=== PATIENT | female | born 1975 | race Caucasian/White ===

== ENCOUNTER → 2023-10-23 08:59 | Outpatient (REF) | payer BC, SELFPAY | LOC: HWLAB 08:59 | PROVIDERS: ATTENDING PHYSICIAN Nurse Practitioner | DX: M79.672 Pain in left foot (principal) | CPT/HCPCS: 73630 ==

== ENCOUNTER → 2024-03-31 06:58 | Outpatient (REF) | payer BC, SELFPAY | LOC: HWWDC 06:58 | PROVIDERS: ATTENDING PHYSICIAN Nurse Practitioner | DX: Z12.31 Encounter for screening mammogram for malignant neoplasm of breast (principal) | CPT/HCPCS: 77063; 77067 ==

== ENCOUNTER → 2024-04-09 08:39 | Outpatient (REF) | payer BC, SELFPAY | LOC: WDC 08:39 | PROVIDERS: ATTENDING PHYSICIAN Nurse Practitioner | DX: R92.8 Other abnormal and inconclusive findings on diagnostic imaging of breast (principal) | CPT/HCPCS: 76642; 77066 ==

== ENCOUNTER → 2024-04-14 07:17 | Outpatient (REF) | payer BC, SELFPAY ==
--- NOTE | 2024-04-14 09:43 | OID.BR.INTR ---
RACHELED Breast Navigator - Initial
- -
Date of Contact: 04/14/24
Met with patient. Patient given written information on navigator services available at [facility]. Will follow up as needed per protocol.
== END ==
LOC: WDC 07:17
PROVIDERS: ATTENDING PHYSICIAN Nurse Practitioner
DX: R92.1 Mammographic calcification found on diagnostic imaging of breast (principal)
CPT/HCPCS: 88305; 19081; 76098; 88341; 88342; 88360; A4648

== ENCOUNTER 2024-05-05 11:16 | Outpatient (REF) | payer BC, SELFPAY ==
--- NOTE | 2024-05-06 12:52 | W.SUR.PREOP ---
Pre-Operative Surgical Note
-
I have examined this patient prior to the performance of the scheduled procedure.
The patient's condition is unchanged from the time of the current History and
Physical and the patient is able to undergo the scheduled procedure.
== END 2024-05-05 14:00 | disposition home or self-care (01) ==
LOC: WDC 11:16
PROVIDERS: ATTENDING PHYSICIAN Surgery; FAMILY PHYSICIAN Nurse Practitioner
DX: C50.911 Malignant neoplasm of unspecified site of right female breast (principal); C50.912 Malignant neoplasm of unspecified site of left female breast
CPT/HCPCS: 38792; A9541

== ENCOUNTER 2024-05-06 11:12 | Day surgery (SDC) | payer BC, SELFPAY ==
[2024-05-02 09:08] LABS: Hematocrit 38.1 % (37.0-47.0); Hemoglobin 12.6 g/dL (12.0-16.0); Mean Corp Hgb Conc. 33.1 g/dL (33.0-37.0); Mean Corpuscular Hgb 31.3 pg (27.0-31.0); Mean Corpuscular Volume 94.8 fL (81.0-99.0); Mean Platelet Volume 10.4 fL (7.4-10.4); Platelet Count 300 10^3/uL (130-400); Red Blood Cell Count 4.02 10^6/uL (4.20-5.40); Red Cell Dist. Width 13.2 % (11.5-14.5); White Blood Cell Count 5.1 10^3/uL (4.8-10.8)
[2024-05-02 09:28] LABS: ALT (SGPT) 19 U/L (0-35); AST (SGOT) 24 U/L (14-36); Albumin 4.2 g/dl (3.5-5.0); Alkaline Phosphatase 49 U/L (38-126); Blood Urea Nitrogen 10 mg/dl (7-17); Calcium 9.2 mg/dl (8.4-10.2); Carbon Dioxide 27 mmol/L (22-30); Chloride 102 mmol/L (98-107); Glucose 89 mg/dl (70-99); Potassium 4.2 mmol/L (3.5-5.1); Sodium 140 mmol/L (135-145); Total Bilirubin 0.4 mg/dl (0.2-1.3); eGFR > 60.00
[2024-05-02 09:32] LABS: Prealbumin (Transthyretin) 24.3 mg/dl (17.6-36.0)
[2024-05-02 11:01] VITALS: BMI 37.0
[2024-05-06] VITALS (10 sets, daily range): BP systolic 2–137; BP diastolic 63–79; BMI 37.0; BMI 38.8
[2024-05-06] MEDS: TYLENOL 1000 MG PO ×2 (11:26→23:31)
[2024-05-06] MEDS: LOVENOX 40 MG SC (13:59)
--- NOTE | 2024-05-06 18:10 | W.IMMPOSTOP ---
Surgical Immed Post Op Note
-
Primary Surgeon: VALERIE Martinez MD
Assisting Surgeon:
Pre-op Diagnosis: Breast Cancer
Post-op Diagnosis: Same
Procedure Performed: Bilateral immediate bellman captain reconstruction after skin sparing mastectomies
Anesthesia Type: GA
Specimen / Cultures: per Dr. Taylor
Estimated Blood Loss: 10cc
Complications: None
Operative Findings: as expected 13cm filled to 150cc NS
--- NOTE | 2024-05-06 18:11 | OR.RPT ---
Operative Report
Operative Report
Date of Surgery: 05/06/24
Surgeon: VALERIE Martinez MD
Preoperative diagnosis: Breast cancer
Postoperative diagnosis: Same
Procedure: Bilateral immediate breast reconstruction with prepectoral tissue expanders
Complications: None
Anesthesia: General
EBL: 10cc
Legal Office Administrator size: 13 cm
Indications for procedure: Patient was referred to me by Dr. Taylor with a recent diagnosis of breast cancer. She was planned to undergo bilateral mastectomy. We discussed her options for breast reconstruction at length including implant based
and autologous options. The patient opted for immediate reconstruction with tissue expanders. She understands that the final reconstruction will be staged. We also discussed the possible use of ADM and spy angiography. Risks include
reconstructive failure, capsular contracture, infection, delayed wound healing, mastectomy skin flap necrosis, hematoma, seroma and need for repeat procedure. Patient understood these risks and desired to proceed. Consents were signed accordingly.
Procedure in detail: Patient was identified the preoperative area and the surgical site was confirmed to be the bilateral breast. All questions were answered and consents were confirmed. Patient was then sat upright and normal anatomical landmarks
were marked including midline and inframammary fold. Patient was then taken back to the operating room placed supine on the table. She was prepped and draped in the usual sterile fashion using ChloraPrep solution. A Chaudhary catheter was placed. A
timeout for patient safety was performed was confirmed that bilateral SCDs were in place and preoperative antibiotics administered. The procedure began with Dr. Taylor first performing the mastectomy. Her op report will be dictated separately.
When I entered the procedure, the first sided mastectomy had been completed. As such I inspected the wound bed of the chest wall and ensured meticulous hemostasis. The base width was measured and appropriate tissue workers compensation manager was selected. The
workers compensation manager was then sutured to the chest wall with a series of 2-0 silk sutures. Pectoralis and intercostal blocks were performed with Marcaine. 2 drains were then placed in the preaxial area line with a long subcutaneous tunnel and sutured in place
with 2-0 Prolene sutures. The wound was irrigated with double antibiotic solution and dilute Betadine. The mastectomy incisions were then closed with a series of 2-0 Vicryl's in the deep subcutaneous tissues followed by Insorb and 3-0 Monocryl's
in the deep dermis and superficial skin.
Attention was then placed on the contralateral side after completion of the mastectomy. The exact same procedure was performed. An workers compensation manager of the same size was opened and soaked in Betadine. The construct was then sutured to the chest wall using
2-0 silks. Pectoralis and intercostal blocks were performed. Meticulous hemostasis was ensured and the wound was irrigated with combination of double antibiotic solution consisting of Ancef and gentamicin as well as dilute Betadine. The wound was
closed in layers.
The wounds were dressed accordingly and a supportive bra was placed. The patient was extubated taken to the PACU for further care. All counts were correct at the end the case was performed out complication.
[2024-05-06] MEDS: DILAUDID 0.5 MG IV (18:37)
[2024-05-06] MEDS: DILAUDID 0.25 MG IV (19:03)
--- NOTE | 2024-05-06 19:41 | OR.RPT ---
Operative Report
Operative Report
Indications for surgery: The patient is a 49-year-old female who presented with bilateral breast carcinoma detected by imaging. She desired bilateral mastectomies and will undergo bilateral sentinel lymph node mapping and biopsy and immediate
reconstruction. On the day prior to the procedure the patient presented to the [facility] imaging center and had technetium radiotracer injected into both breasts. On the day of surgery she verified site and procedures. She was taken to the operating
room. DVT and antibiotic prophylaxis were administered. In the supine position general anesthesia was induced with a laryngeal airway mask. Chaudhary catheter was inserted using aseptic technique. Attention was first turned to the right breast where
a previously marked incision incorporating resection of the nipple areolar complex was made sharply with the blade. Skin flaps were elevated using the PlasmaBlade and Invuity retractor system. The skin was elevated off the entirety of the breast
tissue and the breast was taken off the chest wall in a superior to inferior dimension. Time out of body was noted and the specimen was oriented for the pathologist and sent for permanent analysis. The axilla was entered by incising clavipectoral
fascia with the Bovie and the Neoprobe gamma probe was used to identify sentinel nodes which were removed by clamping and tying with 3-0 silk. Frozen section on all of the notes was negative for any evidence of metastatic disease. Hemostasis was
verified and a moist pack was placed in the resection cavity. Plastic surgery entered to begin the reconstructive portion of the procedure. In the same fashion the left side was approached and the sentinel nodes were harvested as well. At this
juncture all sponge needle and instrument counts were correct.
([id number])
[place] Node Bx Breast Cancer
[place] Node Bx Breast Cancer
Operation performed with curative intent: Yes
Tracer(s) to ID [place] Nodes in Non-Neoadjuvant setting: Radioactive Tracer
Tracer(s) to ID [place] Nodes in the Neoadjuvant Setting: N/A
All nodes at end of dye-filled Lymphatic Channel removed: Yes
All Significantly Radioactive Nodes were removed: Yes
All Palpably Suspicious Nodes were Removed: Yes
Bx Proven Pos Nodes Marked Prior to Chemo ID'd & Removed: N/A
--- NOTE | 2024-05-06 19:45 | PTCARENOTE ---
Pt arrived in bed to 2S at 1945 from PACU. Pt AAOX3. VSS. simon draining yellow urine. 4 AYANNA drains intact and putting out sanguineous drainage. surgical bra in place. dressing on b/l breasts intact. R sided dressing has small sanguineous drainage
which was noted in PACU. L side C/D/I. Pt complains of 5/10 pain (see MAR). head to toe assessment complete. Pt oriented to room and call yeboah. Resting in bed with at bedside.
[2024-05-06] MEDS: NEURONTIN 100 MG PO (21:07)
[2024-05-06] MEDS: ANCEF 5 IV (21:07)
[2024-05-06] MEDS: MOTRIN 200 MG PO (21:24)
[2024-05-07 03:56] VITALS: BP 102/60
[2024-05-07] MEDS: ANCEF 5 IV (05:01)
[2024-05-07] MEDS: TYLENOL 1000 MG PO ×2 (05:01→11:05)
[2024-05-07 05:39] LABS: Hematocrit 35.6 % (37.0-47.0)
[2024-05-07 06:05] LABS: Blood Urea Nitrogen 9 mg/dl (7-17); Calcium 8.3 mg/dl (8.4-10.2); Carbon Dioxide 24 mmol/L (22-30); Chloride 102 mmol/L (98-107); Estimated Creatinine Clearance > 125 ml/min; Glucose 117 mg/dl (70-99); Potassium 4.6 mmol/L (3.5-5.1); Sodium 137 mmol/L (135-145); eGFR > 60.00
[2024-05-07 07:30] VITALS: BP 100/56
[2024-05-07] MEDS: NEURONTIN 100 MG PO (07:51)
--- NOTE | 2024-05-07 07:55 | W.PN.PLAS ---
Progress Note
Subjective Data
Doing well today
Pain well controlled
Denies SOB
Subjective: Chaudhary Removed and Patient Voided
Objective Data
Vital Signs
Temp Pulse Resp BP Pulse Ox
98.2 F 66 18 102/60 92
05/07/24 03:56 05/07/24 03:56 05/07/24 03:56 05/07/24 03:56 05/07/24 03:56
Intake and Output
05/06/24 05/07/24 05/08/24
06:59 06:59 06:59
Intake Total 1919
Output Total 762 / 762
Balance 1158 / 1158
Intake:
Oral fluids 1919
Output:
Drain Output (Total) 562 / 562
Left Breast A 300 / 300
Left Breast B 107 / 107
Right Breast C 125 / 125
Right Breast D 30 / 30
Urine, Chaudhary 150 / 150
Urine, Voided 50 / 50
Other:
Number of approximated MODERATE 1
amounts of urine
Pex:
NAD
No increased WOB
Bilateral breasts with tissue expanders in place
Drains serosang with appropriate output
No undrained fluid collections
Lab Results
05/07/24 04:33
05/07/24 04:33
Assessment / Plan
s/p bilateral mastectomies and immediate front office attendant reconstruction
Discharge to home with VN and close surgical follow up
--- NOTE | 2024-05-07 07:58 | W.DCSUMMARY ---
Discharge Summary
Discharge Data
Date of Admission: 05/06/24
Date of Discharge: 05/07/24
-
Pending Results: No
Hospital Course
Admitted for pain control and flap monitoring following bilateral mastectomy and java development manager reconstruction.
She followed a routine postoperative course. On POD1 she was ambulating, tolerating regular diet, and pain was well controlled on oral medications.
Discharged to home with VN and close surgical follow up.
Discharge Plan
-
Patient Disposition: Home (Routine Discharge)
Discharge Diagnosis/Procedures: s/p b/l mastectomy and java development manager recon
Condition: Good
Diet: No restrictions
Activity: No strenuous activity
Additional Activity: No heavy lifting >10lbs
Driving Restrictions: Not until seen by your Dr
Bathing Restrictions: OK to Shower
Other Services: VN
Wound Care: Remove dressings if wet, strip and record drain output twice daily
Referrals:
Clay Brandon CRNP [Family Provider] -
Prescriptions:
New
tramadol 50 mg Tablet
50 mg PO Q6HPRN PRN (Reason: SEVERE PAIN) 7 Days Qty: 20 0RF
acetaminophen [Tylenol Extra Strength] 500 mg Tablet
1,000 mg PO Q6 30 Days Qty: 240 0RF
gabapentin 100 mg Capsule
100 mg PO TID 30 Days Qty: 90 2RF
diazepam 5 mg Tablet
5 mg PO TIDPRN PRN (Reason: Muscle Spasms) 14 Days Qty: 42 0RF
cefadroxil 500 mg capsule
500 mg PO BID Qty: 42 0RF
Continued
multivitamin Tablet
1 tab PO DAILY
Zepbound 12.5 mg/0.5 mL Pen Injector
12.5 mg SC QWEEK
ibuprofen 600 MG tablet
600 mg PO Q6H PRN (Reason: pain)
Discharge Orders:
Discharge Patient (As Directed); Ordered 05/07/24
Ordered By: Elijah Martinez
Discharge Date and Time
Print Language: WOLOF
--- NOTE | 2024-05-07 10:40 | CM ---
Met with at bedside
Pt reports she lives with her and son in a 2 story home; 1 step to enter, 12 steps to 2nd fl
Independent at baseline, currently not working, drives
DME - none
SNF/HH - no past hx
Has ride at discharge
PCP - Clay Brandon
Pharm - [facility]
CM consult - VN/Drain care
Discussed with pt - Has no preference - [facility] L[facility] for [facility] care needs
Plan - home with VN
--- NOTE | 2024-05-07 11:12 | VNURNOTE ---
Home Health Liaison met with patient and spouse at bedside to discuss [facility] nurse/therapy, visits, schedule and homebound status. Patient is agreeable and understands that visits at home will be 2-3 x per week to assess and teach drain and medical
management. [facility] brochure provided with contact information. Patient is aware that [facility] will contact them for start of care in 1-2 days after discharge from .
[facility] referral completed in Care Port.
[2024-05-07 12:00] VITALS: BP 131/67
== END 2024-05-07 12:49 | disposition home or self-care (01) ==
LOC: SDS 11:12
PROVIDERS: ATTENDING PHYSICIAN Surgery; REFERRING PHYSICIAN Surgery Plastic and Reconstructive Surgery
DX: C50.912 Malignant neoplasm of unspecified site of left female breast (principal); C50.911 Malignant neoplasm of unspecified site of right female breast
CPT/HCPCS: 19357; 19303; 38525; 15860; 88307; 88332; 36415; 80048; 80053; 82306; 84134; 85014; 85018; 85027; 88331; 88342; 93005; C1789; L8000

== ENCOUNTER → 2024-07-31 07:03 | Outpatient (REF) | payer BC, SELFPAY | LOC: RAD 07:03 | PROVIDERS: ATTENDING PHYSICIAN Surgery Plastic and Reconstructive Surgery; FAMILY PHYSICIAN Family Medicine | DX: Z90.13 Acquired absence of bilateral breasts and nipples (principal) | CPT/HCPCS: 74174; Q9967 ==

== ENCOUNTER 2024-08-06 06:27 | Inpatient (IN) | payer BC, SELFPAY ==
[2024-08-06] VITALS (14 sets, daily range): BP systolic 97–124; BP diastolic 60–78; BMI 36.3
[2024-08-06] MEDS: LOVENOX 40 MG SC (07:00)
[2024-08-06] MEDS: NORMOSOL-R/PLASMALYTE-A 1000 IV (07:09)
--- NOTE | 2024-08-06 16:14 | OR.RPT ---
Operative Report
Operative Report
Surgeon: Jake Kye MD
Long Term Care Social Worker/Cosurgeon: Andrew Martinez MD
Second Project Intern: Bisi Taylor MD
Pre-op diagnosis:
1.� Personal history of breast cancer
2. Status post bilateral mastectomies
Postop diagnosis: Same
Procedure:
1. Bilateral breast reconstruction with NAT flaps
2.� Right local tissue rearrangement for recreation of mastectomy defect, measuring 15x15 cm on the right side and
3. Left local tissue rearrangement for modification of the left mastectomy skin flaps measuring 6 x 6 cm
4.� Bilateral internal mammary lymph node biopsy
5. Application of disposable negative pressure incisional wound VAC
Anesthesia: General
EBL: 150 cc
Specimens:
1.� Right internal mammary lymph node
2.� Left internal mammary lymph node
3. Right breast capsule
Drains: 4 15 Cambodian Yovanny drains
Complications: none
Indications:
This is a 49-year-old female with a past medical history significant for breast cancer with prior implant based reconstruction that was complicated by infection and business analytics specialist removal on the right.�She has since been flat on the right with an business analytics specialist
on the left. She was interested in moving forward with autologous reconstruction. Given the anticipated bilateral NAT flap breast reconstruction, I was asked to be involved in her care given the complexity of the case and the need for a second
surgeon to do this as safely and efficiently as possible.
Regarding bilateral free flap breast reconstruction,� she understood the nature of the surgery and all of the risk benefits alternatives were discussed at length.� Specific risks included flap failure or thrombosis, hematoma, seroma, poor wound
healing and compromise to the abdominal wall.� All questions were answered and consents were signed.
Operative findings:
The patient was identified in the preoperative area and consents were confirmed. The bilateral breasts were marked out as was the elliptical infraumbilical donor site. All questions were answered. She was brought to the operating room and placed
supine on the operative table.� General anesthesia was induced with an endotracheal tube. The arms were tucked bilaterally and a Chaudhary catheter was placed.� Preoperative Lovenox and antibiotics were administered, and SCDs were placed.� The patient's
bilateral breasts and abdomen were prepped and draped in normal standard fashion using chlorhexidine prep.� A timeout for patient safety was performed.
To start the procedure, Dr. Martinez and I were in the abdomen to initiate the dissection of the abdominal flaps. I dissected the left abdominal flap for right breast reconstruction and Dr. Martinez worked on the right abdomen for left breast
reconstruction. Dr. Martinez assisted me with my portions of the case, and I assisted him with his portions of the case. Please see Dr. Taylor and Dr. Martinez's separately dictated operative notes. Once Dr. Martinez started his intramuscular dissection
of his flap, i went up to the chest to prepare the vessels for microvascular transfer and at this time we began functioning as 2 separate teams.
In the abdomen, bilateral NAT flaps were dissected out. This began with incising the proposed markings superiorly and dissection with a slight bevel upwards to the level of the fascia. Undermining of the supraumbilical flap continue in the midline
above the umbilicus towards the xiphoid. The patient was then flexed at the waist and the lower incision was confirmed to be tenable without undue tension. The patient was returned supine and the lower marking was incised with a 10 blade. The flaps
were then raised laterally to medially be sure to maintain the perforating vessels above the level of the fascia.� On the right side a 4 lease purchase driver NAT flap was dissected out.� Similarly on the left side a 3 lease purchase driver NAT flap had been dissected
out.�This involved a tedious intramuscular dissection to minimize the amount of muscle harvested with the flap. The pedicles were dissected down to level of the iliac vessels.
In the chest, local tissue rearrangements were performed to recreate the mastectomy defect on the right. This measured 15 x 15 cm. There were prior linn pattern scars that needed to be utilized and back cuts were later made to revise the mastectomy
flaps and adjust to the overlying skin. The cartilaginous portion of the 3rd rib was then resected bilaterally and the underlying internal mammary vessels were then meticulously and carefully dissected.�Internal mammary lymph nodes were encountered
bilaterally and this was excised and sent off for pathologic evaluation. Once the vessels were fully dissected circumferentially these were allowed to dilate up while attention was turned to the contralateral breast.� A pectoralis block was then
performed with marcaine and a 15 Cambodian Yovanny drain was placed through a stab incision the lateral IMF.� This was secured using a 2-0 Prolene suture.
The right hemiabdominal flap was then transferred up to the left chest first. The microvascular anastomosis was then performed.� This was done using a 3.0mm sew out operator for the venous anastomosis.� The arterial anastomosis was performed with a handsewn
technique using 8-0 nylon suture.� Upon removal of the microvascular clamps there was excellent perfusion of the flap.� The flap was then temporarily inset with adama and attention was turned to the contralateral side.
The left hemiabdominal flap was then transferred up to the right chest.� The microvascular anastomosis was similarly performed.� On this side a 4.0mm sew out operator was again utilized for the venous anastomosis.� The arterial anastomosis was performed in
the same fashion as the contralateral side.� Again there was excellent perfusion noted upon removal of the vascular clamps.
While the microvascular anastomoses were being performed, Dr. Taylor was performing the abdominal wall reconstruction.� Again please see her separately dictated operative report for details. Briefly, this involved reapproximation of the muscles
that was divided.� A small piece of Phasix mesh was inset as a underlay with primary fascial closure.� The fascia was closed with interrupted PDS sutures.�
A TAP block was performed bilaterally for postoperative analgesia.� Two 15 Cambodian Yovanny drains were placed in the abdomen.� These were similarly secured using 2-0 Prolene sutures.� The abdominal wall was then closed in a layered fashion.� 2-0 Vicryl
suture was utilized in the Carleen's fascia.� The Insorb dermal stapler was then utilized for reapproximation of the deep dermis.� The superficial skin was then closed using 4-0 Monocryl suture.� The umbilicus was transposed.� This was inset using a
combination of 3-0 Monocryl in the deep dermis and 4-0 vicrl rapide suture superficially. A KITA incisional wound VAC was applied superficially to maximize wound healing.
The NAT flaps were then inset. On the left side, a local tissue rearrangement was performed to modify the mastectomy skin paddles and use the abdominal skin for an areolar reconstruction. This measured 6 x6cm. The skin was then closed in a layered
fashion using 3-0 and 4-0 Monocryl suture.� The NAT flaps were de-epithelialized in all areas that would not be exposed prior to closure.
Doppler signals were identified on both skin islands and there was good punctate bleeding at time of deepithelialization. Signals were marked with 5-0 prolenes.
The wounds were then all dressed and the patient was extubated uneventfully.� All counts were correct at the the completion of the case.� The patient tolerated the procedure very well.� She had an excellent cosmetic outcome.� The patient was then
transferred to the ICU for postoperative�monitoring.
I was the primary surgeon for the right NAT flap breast reconstruction and Dr. Giulia Martinez was the primary surgeon for the left side. I assisted him in all aspects of his surgery and he assisted me throughout my procedure and we functioned as
cosurgeons throughout the case so that we could operate in 2 separate surgical jain at all times to maximize safety and efficiency.
Dr. Bisi Taylor was our second customer service assistant for this case.� Her assistance was critical and medically necessary to allow us to perform this in a safe and timely manner for this patient.� She assisted with retraction, execution, and closure of this
case. She also was responsible for the abdominal wall reconstruction as a primary surgeon.
--- NOTE | 2024-08-06 16:19 | OR.RPT ---
Addendum entered and electronically signed by Bisi Taylor MD 08/21/24 08:49:
The date of the procedure is 08/06/24.
Original Note:
Operative Report
Operative Report
Pre-Op DX: Left breast cancer S/P bilateral mastectomies
Post-Op DX:Left breast cancer S/P bilateral mastectomies
Procedure: Abdominal wall repair with mesh
Surgeon: Brandon
The patient is a 43 Y/O female who previously underwent bilateral mastectomies for the treatment of left breast carcinoma. She underwent immediate
implant based reconstruction, but the right reducing machine operator became infected and was removed. This was healed and she presented today for reconstruction
with bilateral NAT flaps performed by Drs. Key and Michelle. I was present throughout the entire case to second assist and perform the
abdominal wall reconstruction as the Plastic Surgeons are not credentialed in General Surgery.
After the tissue flaps were harvested, two abdominal wall defects in the anterior abdominal wall had been created both measuring 5 x 15 cm. Two portions of Phasix mesh
cut to the bilateral defect size of 15 x 5 cm were fashioned and placed under the anterior rectus abdominis muscle sheath on each side. The anterior abdominal
wall fascia was reapproximated with interupted figure of eight 0-PDS suture. Then an 0-Stratifix suture was used to oversew the repairs on both sides.
This resulted in low tension on the anterior abdominal wall.
The remaining soft tissue and skin closure was performed as described in the Plastic Surgical dictation.
([id number])
--- NOTE | 2024-08-06 16:35 | W.IMMPOSTOP ---
Surgical Immed Post Op Note
-
Primary Surgeon: VALERIE Mratinez MD
Assisting Surgeon: Jake Key MD; Bisi Taylor MD
Pre-op Diagnosis: H/o breast CA, surgically acquired abscence of bilateral breasts and nipples
Post-op Diagnosis: Same
Procedure Performed: Bilateral NAT flap breast reconstruction, removal of left tissue yarn spooler
Anesthesia Type: General
Specimen / Cultures: Right breast capsule, IM lymph nodes
Estimated Blood Loss: 150cc
Complications: None
Operative Findings: No issues with micro, well perfused flaps
--- NOTE | 2024-08-06 16:35 | OR.RPT ---
Operative Report
Operative Report
Date of Surgery: 08/06/2024
Surgeon: Andrew Martinez MD
Addiction Treatment Counselor/Cosurgeon: Jake Key MD
Second Ocean Freight Agent: Bisi Taylor MD
Pre-op diagnosis:
1.� Personal history of breast cancer
2. Status post bilateral mastectomies
Postop diagnosis: Same
Procedure:
1. Bilateral breast reconstruction with NAT flaps
2.� Right local tissue rearrangement for recreation of mastectomy defect, measuring 15x15 cm on the right side and
3. Left local tissue rearrangement for modification of the left mastectomy skin flaps measuring 6 x 6 cm
4.� Bilateral internal mammary lymph node biopsy
5. Application of disposable negative pressure incisional wound VAC
Anesthesia: General
EBL: 150 cc
Specimens:
1.� Right internal mammary lymph node
2.� Left internal mammary lymph node
3. Right breast capsule
Drains: 4 15 [place] Yovanny drains
Complications: none
Indications:
This is a 49-year-old female with a past medical history significant for breast cancer with prior implant based reconstruction that was complicated by infection and grassland conservationist removal on the right.�She has since been flat on the right with an grassland conservationist
on the left. She was interested in moving forward with autologous reconstruction. Given the anticipated bilateral NAT flap breast reconstruction, I asked Dr. Key to be involved in her care given the complexity of the case and the need for a
second surgeon to do this as safely and efficiently as possible.
Regarding bilateral free flap breast reconstruction,� she understood the nature of the surgery and all of the risk benefits alternatives were discussed at length.� Specific risks included flap failure or thrombosis, hematoma, seroma, poor wound
healing and compromise to the abdominal wall.� All questions were answered and consents were signed.
Operative findings:
The patient was identified in the preoperative area and consents were confirmed. The bilateral breasts were marked out as was the elliptical infraumbilical donor site. All questions were answered. She was brought to the operating room and placed
supine on the operative table.� General anesthesia was induced with an endotracheal tube. The arms were tucked bilaterally and a Chaudhary catheter was placed.� Preoperative Lovenox and antibiotics were administered, and SCDs were placed.� The patient's
bilateral breasts and abdomen were prepped and draped in normal standard fashion using chlorhexidine prep.� A timeout for patient safety was performed.
To start the procedure, Dr. Key and I were in the abdomen to initiate the dissection of the abdominal flaps. I dissected the right abdominal flap for left breast reconstruction and Dr. Key worked on the left abdomen for right breast
reconstruction. Dr. Key assisted me with my portions of the case, and I assisted him with his portions of the case. Please see Dr. Taylor and Dr. Key's separately dictated operative notes. Once Dr. Key started his intramuscular dissection of
his flap, I went up to the chest to prepare the vessels for microvascular transfer and at this time we began functioning as 2 separate teams.
In the abdomen, bilateral NAT flaps were dissected out. This began with incising the proposed markings superiorly and dissection with a slight bevel upwards to the level of the fascia. Undermining of the supraumbilical flap continue in the midline
above the umbilicus towards the xiphoid. The patient was then flexed at the waist and the lower incision was confirmed to be tenable without undue tension. The patient was returned supine and the lower marking was incised with a 10 blade. The flaps
were then raised laterally to medially be sure to maintain the perforating vessels above the level of the fascia.� On the right side a 4 electrical designer NAT flap was dissected out.� Similarly on the left side a 3 electrical designer NAT flap had been dissected
out.�This involved a tedious intramuscular dissection to minimize the amount of muscle harvested with the flap. The pedicles were dissected down to level of the iliac vessels.
In the chest, local tissue rearrangements were performed to recreate the mastectomy defect on the right. This measured 15 x 15 cm. There were prior linn pattern scars that needed to be utilized and back cuts were later made to revise the mastectomy
flaps and adjust to the overlying skin. The cartilaginous portion of the 3rd rib was then resected bilaterally and the underlying internal mammary vessels were then meticulously and carefully dissected.�Internal mammary lymph nodes were encountered
bilaterally and this was excised and sent off for pathologic evaluation. Once the vessels were fully dissected circumferentially these were allowed to dilate up while attention was turned to the contralateral breast.� A pectoralis block was then
performed with marcaine and a 15 [place] Yovanny drain was placed through a stab incision the lateral IMF.� This was secured using a 2-0 Prolene suture.
The right hemiabdominal flap was then transferred up to the left chest first. The microvascular anastomosis was then performed.� This was done using a 3.0mm turbine subassembler for the venous anastomosis.� The arterial anastomosis was performed with a handsewn
technique using 8-0 nylon suture.� Upon removal of the microvascular clamps there was excellent perfusion of the flap.� The flap was then temporarily inset with adama and attention was turned to the contralateral side.
The left hemiabdominal flap was then transferred up to the right chest.� The microvascular anastomosis was similarly performed.� On this side a 4.0mm turbine subassembler was again utilized for the venous anastomosis.� The arterial anastomosis was performed in
the same fashion as the contralateral side.� Again there was excellent perfusion noted upon removal of the vascular clamps.
While the microvascular anastomoses were being performed, Dr. Taylor was performing the abdominal wall reconstruction.� Again please see her separately dictated operative report for details. Briefly, this involved reapproximation of the muscles
that was divided.� A small piece of Phasix mesh was inset as a underlay with primary fascial closure.� The fascia was closed with interrupted PDS sutures.�
A TAP block was performed bilaterally for postoperative analgesia.� Two 15 [place] Yovanny drains were placed in the abdomen.� These were similarly secured using 2-0 Prolene sutures.� The abdominal wall was then closed in a layered fashion.� 2-0 Vicryl
suture was utilized in the Carleen's fascia.� The Insorb dermal stapler was then utilized for reapproximation of the deep dermis.� The superficial skin was then closed using 4-0 Monocryl suture.� The umbilicus was transposed.� This was inset using a
combination of 3-0 Monocryl in the deep dermis and 4-0 vicrl rapide suture superficially. A KITA incisional wound VAC was applied superficially to maximize wound healing.
The NAT flaps were then inset. On the left side, a local tissue rearrangement was performed to modify the mastectomy skin paddles and use the abdominal skin for an areolar reconstruction. This measured 6 x6cm. The skin was then closed in a layered
fashion using 3-0 and 4-0 Monocryl suture.� The NAT flaps were de-epithelialized in all areas that would not be exposed prior to closure.
Doppler signals were identified on both skin islands and there was good punctate bleeding at time of deepithelialization. Signals were marked with 5-0 prolenes.
The wounds were then all dressed and the patient was extubated uneventfully.� All counts were correct at the the completion of the case.� The patient tolerated the procedure very well.� She had an excellent cosmetic outcome.� The patient was then
transferred to the ICU for postoperative�monitoring.
I was the primary surgeon for the left NAT flap breast reconstruction and Dr. Key was the primary surgeon for the right side. I assisted him in all aspects of his surgery and he assisted me throughout my procedure and we functioned as cosurgeons
throughout the case so that we could operate in 2 separate surgical jain at all times to maximize safety and efficiency.
Dr. Bisi Taylor was our second broker assistant for this case.� Her assistance was critical and medically necessary to allow us to perform this in a safe and timely manner for this patient.� She assisted with retraction, execution, and closure of this
case. She also was responsible for the abdominal wall reconstruction as a primary surgeon.
[2024-08-06] MEDS: ULTRAM 100 MG PO ×2 (16:54→23:56)
[2024-08-06] MEDS: LR 1000 IV ×2 (16:55→23:56)
--- NOTE | 2024-08-06 18:38 | PTCARENOTE ---
1615-Received pt from OR via bed.Bedside report given and breast paddle check completed in tandem. Pt is awake and alert.Conversation is appropriate.+CARRENO.C/o severe abdominal pain.Medicated with Ultram.SR noted.LR infusing as ordered.Lungs CTA.O2 4l
NC.POX 97%Tolerating clear liquids.Chaudhray draining yellow urine.Skin integrity as documented.AYANNA and KITA drains intact.Plan of care discussed with pt.
--- NOTE | 2024-08-06 19:28 | PTCARENOTE ---
Breast flap assessment completed in tandem with oncoming RN.PM care given.
--- NOTE | 2024-08-06 19:30 | PTCARENOTE ---
rec'd patient. in beach chair position. + doppler signals in b/l breast paddles. AYANNA drain x4 emptied and documented, KITA x1, green ok light flashing. simon in place. SB on monitor. pt denies pain at this time. cornelia ontiveros on. call yeboah in reach.
[2024-08-06] MEDS: ANCEF 10 IV (22:04)
[2024-08-06] MEDS: TYLENOL 1000 MG PO (22:04)
[2024-08-06] MEDS: NEURONTIN 100 MG PO (22:05)
[2024-08-07] VITALS (22 sets, daily range): BP systolic 89–117; BP diastolic 55–83; BMI 36.3
--- NOTE | 2024-08-07 | PTCARENOTE ---
continue with q1h breast skin paddle checks, pt transitioned to room air, PRN pain meds given, otherwise assessment unchanged
[2024-08-07 03:37] LABS: Hematocrit 29.3 % (37.0-47.0)
--- NOTE | 2024-08-07 03:48 | PTCARENOTE ---
AM labs sent. q1h paddle checks continue, pulses unchanged with doppler. mild swelling/bruising noted around site. AYANNA drains emptied q4h. call yeboah in reach
[2024-08-07 04:11] LABS: Blood Urea Nitrogen 9 mg/dl (7-17); Calcium 7.5 mg/dl (8.4-10.2); Carbon Dioxide 26 mmol/L (22-30); Chloride 104 mmol/L (98-107); Estimated Creatinine Clearance > 125 ml/min; Glucose 112 mg/dl (70-99); Potassium 4.1 mmol/L (3.5-5.1); Sodium 133 mmol/L (135-145); eGFR > 60.00
[2024-08-07] MEDS: ANCEF 10 IV ×2 (05:03→13:45)
--- NOTE | 2024-08-07 05:20 | PTCARENOTE ---
pt with noticeably more swelling and bruising in R breast around incision site, Dr Martinez notified via TT, site remains soft and pulses unchanged. no further orders, no pressing issues per Dr Martinez.
[2024-08-07] MEDS: ULTRAM 100 MG PO ×2 (05:59→23:03)
--- NOTE | 2024-08-07 07:15 | CON.INTV ---
Consultation
Consultation Request
Date/Time Consultation Requested: 08/06/24
Date/Time Consultation Performed: 08/07/24
Performing Provider: Francine
Reason for Consultation: ICU
Medical History
Allergies / Home Medications
Allergies
Allergy/AdvReac Type Severity Reaction Status Date / Time
No Known Allergies Allergy Verified 08/06/24 06:59
Home Medications
�Medication �Instructions �Recorded �Confirmed �Last Taken �Type
ibuprofen 600 mg tablet 600 mg PO Q6H PRN pain 04/30/24 08/06/24 2 Weeks Ago History
~07/23/24
multivitamin 1 tab PO DAILY 04/30/24 08/06/24 1 Week Ago History
~07/30/24
tirzepatide (weight loss) 12.5 12.5 mg SC QWEEK 04/30/24 08/06/24 07/21/24 History
mg/0.5 mL subcutaneous pen
injector (Zepbound)
acetaminophen 500 mg tablet 1,000 mg (2 x 500 mg) PO Q6 30 05/07/24 08/06/24 2 Days Ago Rx
(Tylenol Extra Strength) days #240 tabs ~08/04/24
tamoxifen 20 mg tablet 20 mg PO DAILY 07/29/24 08/06/24 07/26/24 History
Review of Systems
Vitals / Labs / Diagnostic Testing
Vital Signs
Temp Pulse Resp BP Pulse Ox
99.6 F 73 14 96/59 92
08/07/24 06:00 08/07/24 06:00 08/07/24 06:00 08/07/24 06:00 08/07/24 07:14
Lab Data
08/07/24 03:29
08/07/24 03:29
Diagnostic Testing:
Assessment
-
Breast Cancer s/p Bilateral breast reconstruction with NAT flaps/Right local tissue rearrangement for recreation of mastectomy defect, measuring 15x15 cm on the right side/Left local tissue rearrangement for modification of the left mastectomy skin
flaps measuring 6 x 6 cm/Bilateral internal mammary lymph node biopsy/Application of disposable negative pressure incisional wound VAC 08/06/24
Postop anemia, mild
Hyponatremia
Hypocalcemia
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
Left breast invasive ductal carcinoma
Lymph Node removed Left side neck
Stereotactic Left breast biopsy 04/14/24
s/p Bilateral immediate residential sales representative reconstruction after skin sparing mastectomies 05/06/24
HLD
Obesity, BMI 36.3
Plan
S/p FLAP by plastic surgery POD #1
Observe overnight following procedure
Follow CBC, neurovascular checks
Follow q1 blood flow monitoring to flap
Notify surgical team if compromised
Avoid pressors
Bolus IVFs for hypotension
Pain control via TECHNICAL PHOTOGRAPHER
Encouraged patient use prior to movement/PT
No prior h/o lung disease, nonsmoker
No prior chest imaging
Continue home meds/inhalers as needed
Restart diet per protocol/advance as tolerated
GI ppx if indicated/history of GERD
DVT ppx held, SCDs
Creat at baseline, follow UO
Daily weights
No signs/symptoms suspicious for infectious etiology at this time.
Will observe off antibiotics for now.
Encourage OOB, early mobility
PT/OT
Incentive spirometer encouraged to prevent postoperative atelectasis
DVT ppx as indicated postop
SCDs
Monitor 48 hours, frequent vascular checks
If doing well, can transfer to floors with approval by primary team.
Diagnostic Data
Chest X-Ray:
CT Scan: AP 07/31/24- 1. No significant atherosclerotic disease appreciated within the abdomen or pelvis.
2. Each inferior epigastric artery arises from the external iliac artery. Multiple intramuscular perforators are seen on each side.
Echo:
PFT's:
Reports and relevant images were personally reviewed.
Critical Care time 55 mins -- this includes review of history, physical exam, medications, hemodynamic/ventilator parameters, laboratory data, imaging and discussion with house staff, pharmacy, nursing and patient's family.
[2024-08-07] MEDS: SENOKOT 8.6 MG PO ×2 (07:42→19:13)
[2024-08-07] MEDS: COLACE 100 MG PO ×3 (07:42→23:03)
[2024-08-07] MEDS: NEURONTIN 100 MG PO ×3 (07:42→23:03)
[2024-08-07] MEDS: TYLENOL 1000 MG PO ×4 (07:42→23:03)
[2024-08-07] MEDS: LR 1000 IV (08:30)
--- NOTE | 2024-08-07 08:42 | PTCARENOTE ---
Received pt awake and alert.Conversation is appropriate.+CARRENO.Assisted OOB to chair with minimal assist.c/o abdominal pain that is tolerable.SR noted.IVF infusing.Lungs CTA,POX 93% on RA.Ordering breakfast.No BM.Chaudhary discontinued at 0750.Skin
integrity as documented.Right breast is slightly ecchymotic.Breast paddle checks done in tandem with outgoing RN.AYANNA x 4 and KITA intact.Plan of care discussed with pt.
--- NOTE | 2024-08-07 08:55 | CM ---
CM following re: discharge planning.
Reviewed pt's chart, met with pt.
Pt is a 49 year old female, admitted with primary dx of Left breast cancer S/P bilateral mastectomies, Abdominal wall repair with mesh procedure performed today.
Pt reports she lives with and a son in a 2SH, 2 steps to enter, has 2 supportive children. 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
CM consulted to arrange RN visit next day of discharge for drain care. CM discussed it with the pt, a list of VN vendors provided, pt preferred VN. A referral to [facility] made, spoke to liapamela Burns, pt is accepted for services and she confirmed that
RN will be available to visit the pt next day of discharge.
[facility] liaison following.
Please fax discharge instructions to [facility] at [phone].
PCP: Dagmar Ruiz
Pharmacy: [facility]
D/C plan: home with [facility] RN visit next day of discharge for drain care and family support. Family to transport at discharge.
CM will follow with discharge plan updates as hospitalization progresses
[2024-08-07] MEDS: ULTRAM 50 MG PO (10:16)
--- NOTE | 2024-08-07 10:17 | VNURNOTE ---
Home Health Liaison met with patient at bedside to discuss [facility] nurse/therapy, visits, schedule and homebound status. Patient is agreeable and understands that visits at home will be 2-3 x per week to assess and teach medical management. She is
familiar with VN, had [facility]N last fall.
[facility] brochure provided with contact information. Patient is aware that [facility] will contact them for start of care in 1 day after discharge from .
[facility] referral completed in Care Port.
--- NOTE | 2024-08-07 11:21 | W.PN.PLAS ---
Today's Communication
-
NAT flap protocol postop day 1
Progress Note
Subjective Data
Doing well denies shortness of breath
Subjective: Tolerating Regular Diet and Chaudhary Removed
Objective Data
Vital Signs
Temp Pulse Resp BP Pulse Ox
99.3 F 66 15 90/58 92
08/07/24 07:17 08/07/24 07:00 08/07/24 07:00 08/07/24 07:00 08/07/24 07:14
Intake and Output
08/06/24 08/07/24 08/08/24
06:59 06:59 06:59
Intake Total 3315 / 3540 600 / 600
Output Total 2695 / 2745 185 / 185
Balance 620 / 795 415 / 415
Intake:
Oral fluids 1440 / 1540 100 / 100
IV fluids (Total) 187 / 1999 500 / 500
Lr 1,000 ml @ 125 mls/hr IV . 1874 500 / 500
Q8H CELESTINE Rx#:[id number]
Output:
Drain Output (Total) 145 / 145 70 / 70
Left Abdomen D 70 / 70 25 / 25
Left Breast C 25 / 25 10 / 10
Right Abdomen B 20 / 20 30 / 30
Right Breast A 30 / 30 5 / 5
Urine, Chaudhary 2550 / 2600 115 / 115
Lab Results
08/07/24 03:29
08/07/24 03:29
Physical exam:
No acute distress
No increased work of breathing
Bilateral breast flaps well-perfused in appearance
Intact Doppler signals bilaterally
No evidence of venous congestion
Appropriate drain output, serosanguineous
No undrained fluid collections
Routine incisional healing
Assessment / Plan
Status post bilateral NAT flap surgery
SCDs/prophylactic Lovenox
Progress to regular diet as tolerated
DC fluids
Out of bed to chair
P.o. pain control
Every hour flap monitoring for 48 hours
[2024-08-07] MEDS: VALIUM 5 MG PO ×2 (12:55→19:13)
--- NOTE | 2024-08-07 12:59 | PTCARENOTE ---
Pt assessed.No change in assessment.Pt requested and received Valium for abdominal muscle spasms.
--- NOTE | 2024-08-07 16:43 | PTCARENOTE ---
Pt assessed.No change in assessment noted.Pt remains resting in recliner.Pt is voiding in bathroom.Denies discomfort.Breast paddle assessment completed q1 hour as ordered.
[2024-08-07] MEDS: LOVENOX 40 MG SC (17:48)
--- NOTE | 2024-08-07 19:33 | PTCARENOTE ---
rec'd patient OOB to chair. ambulated w/ sup to BR, back in bed, tolerated movement well. PRN valium given for abd spasms. SR on monitor, on RA. AYANNA x4 drained and output documented. KITA w/ green ok light flashing. R breast with ecchymosis, b/l
paddle checks completed, Doppler signals noted. call yeboah in reach. care ongoing.
[2024-08-08] VITALS (25 sets, daily range): BP systolic 86–134; BP diastolic 56–107; PULSE 65; O2SAT 95; BMI 37.0
--- NOTE | 2024-08-08 07:25 | W.PN.INTV ---
Today's Communication / Plan
Recommendations
Remains stable overnight, no new complaints
Continued postop care/observation
Pain control
Encouraged OOB, PT ordered
Likely to be discharged in AM
Assessment
-
Breast Cancer s/p Bilateral breast reconstruction with NAT flaps/Right local tissue rearrangement for recreation of mastectomy defect, measuring 15x15 cm on the right side/Left local tissue rearrangement for modification of the left mastectomy skin
flaps measuring 6 x 6 cm/Bilateral internal mammary lymph node biopsy/Application of disposable negative pressure incisional wound VAC 08/06/24
Postop anemia, mild
Hyponatremia
Hypocalcemia
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
Left breast invasive ductal carcinoma
Lymph Node removed Left side neck
Stereotactic Left breast biopsy 04/14/24
s/p Bilateral immediate osteopathic medicine teacher reconstruction after skin sparing mastectomies 05/06/24
HLD
Obesity, BMI 36.3
Plan
S/p FLAP by plastic surgery POD #2
Observe overnight following procedure
Follow CBC, neurovascular checks
Follow q1 blood flow monitoring to flap
Notify surgical team if compromised
Avoid pressors
Bolus IVFs for hypotension
Pain control via REINFORCING STEEL MACHINE OPERATOR
Encouraged patient use prior to movement/PT
No prior h/o lung disease, nonsmoker
No prior chest imaging
Continue home meds/inhalers as needed
Restart diet per protocol/advance as tolerated
GI ppx if indicated/history of GERD
DVT ppx held, SCDs
Creat at baseline, follow UO
Daily weights
No signs/symptoms suspicious for infectious etiology at this time.
Will observe off antibiotics for now.
Encourage OOB, early mobility
PT/OT
Incentive spirometer encouraged to prevent postoperative atelectasis
DVT ppx as indicated postop
SCDs
Monitor 48 hours, frequent vascular checks
If doing well, can transfer to floors with approval by primary team.
Diagnostic Data
Chest X-Ray:
CT Scan: AP 07/31/24- 1. No significant atherosclerotic disease appreciated within the abdomen or pelvis.
2. Each inferior epigastric artery arises from the external iliac artery. Multiple intramuscular perforators are seen on each side.
Echo:
PFT's:
Reports and relevant images were personally reviewed.
Critical Care time 31 mins -- this includes review of history, physical exam, medications, hemodynamic/ventilator parameters, laboratory data, imaging and discussion with house staff, pharmacy, nursing and patient's family.
Subjective Dataa
Subjective Data
Date of Service:
Date of Service: August 08, 2024
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
Subjective:
no acute events ON, stable on RA
no new complaints
Objective Data
Data Reviewed
Vital Signs / I&O / Oxygen:
Vital Signs
Temp Pulse Resp BP Pulse Ox
98.7 F 69 15 115/73 92
08/08/24 03:09 08/08/24 06:00 08/08/24 06:00 08/08/24 06:00 08/08/24 03:09
Intake and Output
08/07/24 08/08/24 08/09/24
06:59 06:59 06:59
Intake Total 3315 / 3540 2520 / 2520
Output Total 2695 / 2745 2100 / 2100
Balance 620 / 795 420 / 420
SaO2 92
Nasal Cannula flow liters per 2
minute
Physical Exam
General: Comfortable and Other (NAD)
HEENT: Normocephalic, Anicteric and Moist Mucous Membranes
Cardiovascular: S1-S2 and Regular Rhythm
Respiratory: Clear and Non-Labored Respirations
GI: Soft, Non Distended and Non Tender
Neurology: Awake, Alert, Oriented and No Motor Deficits
Skin: Warm, Dry and Good Color
Labs/Micro/Reports
Lab Data
08/08/24 06:00
08/08/24 06:00
[2024-08-08] MEDS: SENOKOT 8.6 MG PO ×2 (07:42→19:47)
[2024-08-08] MEDS: TYLENOL 1000 MG PO ×4 (07:42→22:10)
[2024-08-08] MEDS: NEURONTIN 100 MG PO ×2 (07:42→16:31)
[2024-08-08] MEDS: COLACE 100 MG PO ×3 (07:42→22:10)
--- NOTE | 2024-08-08 08:14 | PTCARENOTE ---
pt received from previous rn- aox4, able to make needs known. pt post NAT, paddle checks as charted, good pulses. abdominal binder on and intact, osmin drain intact, abdominal dressing with old drainage. pt able to ambulate in room and to bathroom,
oob to chair this am. JPs with serosang. drainage. nsr on monitor, room air, no complaints at this time. all safety precautions in place, call yeboah within reach. pt educated about IS use, pulled 1000. educated about plan of care, verbalized
understanding.
--- NOTE | 2024-08-08 12:14 | PTCARENOTE ---
assessment and paddle checks unchanged. pt ambulating in hallway with rn and pt x2 today. remains oob to chair, education provided about discharge planning, medications and activity- and pt verbalized understanding. scds on.
--- NOTE | 2024-08-08 16:37 | PTCARENOTE ---
assessment and paddle checks unchanged. pt resting comfortably in chair.
--- NOTE | 2024-08-08 17:45 | W.PN.PLAS ---
Today's Communication
-
Postop day 2 NAT flap protocol
Progress Note
Subjective Data
Doing well, denies shortness of breath
Subjective: Tolerating Regular Diet, Ambulatory, Chaudhary Removed and Patient Voided
Objective Data
Vital Signs
Temp Pulse Resp BP Pulse Ox
97.7 F 65 19 118/79 93
08/08/24 15:31 08/08/24 17:00 08/08/24 17:00 08/08/24 17:00 08/08/24 16:37
Intake and Output
08/07/24 08/08/24 08/09/24
06:59 06:59 06:59
Intake Total 3315 / 3540 2520 / 2520
Output Total 2695 / 2745 2100 / 2100 590 / 590
Balance 620 / 795 420 / 420 -590 / -590
Intake:
Oral fluids 1440 / 1540 2019 / 2019
IV fluids (Total) 187 / 1999 500 / 500
Lr 1,000 ml @ 125 mls/hr IV . 1874 500 / 500
Q8H CELESTINE Rx#:[id number]
Output:
Drain Output (Total) 145 / 145 335 / 335 140 / 140
Left Abdomen D 70 / 70 145 / 145 60 / 60
Left Breast C 25 / 25 35 / 35 25 / 25
Right Abdomen B 20 / 20 95 / 95 45 / 45
Right Breast A 30 / 30 60 / 60 10 / 10
Urine, Chaudhary 2550 / 2600 115 / 115
Urine, Voided 1650 / 1650 450 / 450
Other:
Number of approximated MODERATE 2
amounts of urine
Physical exam:
No acute distress
No increased work of breathing
Bilateral breast flaps well-perfused in appearance
Intact Doppler signals bilaterally
No evidence of venous congestion
Appropriate drain output, serosanguineous
No undrained fluid collections
Routine incisional healing
Lab Results
08/08/24 06:00
08/08/24 06:00
Assessment / Plan
Status post bilateral NAT flap surgery
SCDs/prophylactic Lovenox
Progress to regular diet as tolerated
Out of bed to ambulate
P.o. pain control
Every hour flap monitoring for 48 hours
PT OT
VN
[2024-08-08] MEDS: LOVENOX 40 MG SC (17:58)
[2024-08-08] MEDS: VALIUM 5 MG PO (20:25)
--- NOTE | 2024-08-08 20:33 | PTCARENOTE ---
Handoff report received from off going RN. Breast skin paddle assessment completed and as noted on the worklist. Right breast is slightly more swollen withe ecchymosis than the left. No hematoma noted. Pulses are present. Abdominal incision is with
small amount of old drainage. KITA drain is intact with green indicator flash. Abdominal binder intact. Bilateral AYANNA drains with small amount of serosang. output. Pt's AAOx4 and able to make her needs known. Verbalizes discomfort. Plan of care for
the shift and pain management plan reviewed with the patient. NSR on the monitor. Clear breath sounds. Pt ambulated to the bathroom and performed self hygiene care. Linens changed. Valium administered for discomfort. All needs are met at this time.
Safety measures maintained. Call yeboah and personal belongings are within reach.
[2024-08-09] VITALS (11 sets, daily range): BP systolic 94–134; BP diastolic 54–86; BMI 37.0
[2024-08-09] MEDS: NEURONTIN 100 MG PO ×2 (00:24→07:11)
--- NOTE | 2024-08-09 01:21 | PTCARENOTE ---
Patient reassessed. VSS. No changes from te previous assessment.
[2024-08-09 04:45] LABS: % Basophils 0.7 % (0-2); % Immature Granulocytes 0.3 % (0-0.5); % Lymphocytes 37.4 % (20.5-51.1); % Monocytes 6.8 % (1.7-9.3); % Neutrophils 51.8 % (42.2-75.2); Absolute Eosinophils 0.2 10^3/uL (0-0.7); Absolute Lymphocytes 2.3 10^3/uL (1.2-3.4); Absolute Monocytes 0.4 10^3/uL (0.1-0.6); Absolute Neutrophils 3.1 10^3/uL (1.4-6.5); Hematocrit 29.8 % (37.0-47.0); Hemoglobin 9.7 g/dL (12.0-16.0); Mean Corp Hgb Conc. 32.6 g/dL (33.0-37.0); Mean Corpuscular Hgb 29.8 pg (27.0-31.0); Mean Corpuscular Volume 91.4 fL (81.0-99.0); Mean Platelet Volume 9.5 fL (7.4-10.4); Nucleated Red Blood Cells % 0 %; Platelet Count 220 10^3/uL (130-400); Red Blood Cell Count 3.26 10^6/uL (4.20-5.40); Red Cell Dist. Width 13.6 % (11.5-14.5)
--- NOTE | 2024-08-09 04:56 | PTCARENOTE ---
Patient reassessed. VSS. breast skin paddle assessment as noted on the flowsheet. Patient ambulated to the bathroom. Labs drawn and sent. All needs are met at this time.
[2024-08-09 05:13] LABS: Blood Urea Nitrogen 6 mg/dl (7-17); Calcium 8.3 mg/dl (8.4-10.2); Carbon Dioxide 30 mmol/L (22-30); Chloride 103 mmol/L (98-107); Estimated Creatinine Clearance > 125 ml/min; Glucose 89 mg/dl (70-99); Sodium 137 mmol/L (135-145); eGFR > 60.00
[2024-08-09] MEDS: COLACE 100 MG PO (07:11)
[2024-08-09] MEDS: SENOKOT 8.6 MG PO (07:11)
[2024-08-09] MEDS: TYLENOL 1000 MG PO (07:11)
--- NOTE | 2024-08-09 07:54 | PTCARENOTE ---
pt received from previous rn- aox4, on room air, nsr on monitor. able to make all needs known, safety precautions in place. 4 JPs with sero sang drainage. incisions with old drainage to dressing, KITA intact. pt oob to bathroom and chair. call yeboah
within reach. educated about plan of care, verbalized understanding.
--- NOTE | 2024-08-09 08:20 | W.PN.INTV ---
Today's Communication / Plan
Recommendations
Pain control
Encourage incentive spirometer use
Outpatient follow-up with plastic surgery + Dr. Taylor
Patient is being prepared for discharge home. No additional recommendations at this time. Commercial Insulator/Pulmonary service will now sign off. Please reconsult if there are any additional questions/concerns, or if patient's respiratory status
deteriorates.
Assessment
-
Breast Cancer s/p Bilateral breast reconstruction with NAT flaps/Right local tissue rearrangement for recreation of mastectomy defect, measuring 15x15 cm on the right side/Left local tissue rearrangement for modification of the left mastectomy skin
flaps measuring 6 x 6 cm/Bilateral internal mammary lymph node biopsy/Application of disposable negative pressure incisional wound VAC 08/06/24
Postop anemia, mild
Hyponatremia - resolved
Hypocalcemia - improved
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
Left breast invasive ductal carcinoma
Lymph Node removed Left side neck
Stereotactic Left breast biopsy 04/14/24
s/p Bilateral immediate switchboard manager reconstruction after skin sparing mastectomies 05/06/24
HLD
Obesity, BMI 36.3
Plan
S/p FLAP by plastic surgery POD #3
Observed overnight following procedure
Follow CBC, neurovascular checks
Follow blood flow monitoring to flap
Notify surgical team if compromised
Avoid pressors
Bolus IVFs for hypotension
Pain control - her pain is controlled this AM
Encouraged patient use prior to movement/PT
No prior h/o lung disease, nonsmoker
No prior chest imaging, although the bases of her lungs from recent CT abdomen/pelvis from 07/31/2024 looks normal
Continue home meds/inhalers as needed
Encourage PO diet
Creat at baseline, follow UO
Daily weights
No signs/symptoms suspicious for infectious etiology at this time.
Will observe off antibiotics for now.
Encourage OOB, early mobility
PT/OT
Incentive spirometer encouraged to prevent postoperative atelectasis
GI ppx: N/A
DVT ppx: LMWH
Patient is being prepared for discharge home. No additional recommendations at this time. Commercial Insulator/Pulmonary service will now sign off. Thank you for allowing us to be involved in the care of this patient. Please reconsult if there are any
additional questions/concerns, or if patient's respiratory status deteriorates.
Diagnostic Data
Chest X-Ray:
CT Scan: AP 07/31/24- 1. No significant atherosclerotic disease appreciated within the abdomen or pelvis.
2. Each inferior epigastric artery arises from the external iliac artery. Multiple intramuscular perforators are seen on each side.
Reports and relevant images were personally reviewed.
Total time spent today was 43 minutes for this encounter. Time includes reviewing laboratory test/imaging results, reviewing pertinent medical records, obtaining and reviewing medical history, performing an appropriate exam, ordering medications,
tests and procedures. Time also includes documentation of this encounter, coordinating patient care and communicating with other healthcare professionals. Total time does not include separately billed tests performed on this date of service.
Subjective Dataa
Subjective Data
Date of Service:
Date of Service: August 09, 2024
Chief Complaint: Commercial Insulator Follow Up
Subjective:
Patient seen and evaluated at bedside. She feels well. Has some mild pain at the operative sites. BP 134/86, and she is breathing comfortably on room air. She denies HILL, nausea, vomiting, fevers or chills.
Review of Systems
General: Other (Negative unless mentioned above)
Objective Data
Data Reviewed
Vital Signs / I&O / Oxygen:
Vital Signs
Temp Pulse Resp BP Pulse Ox
98.5 F 65 15 133/73 97
08/09/24 07:09 08/09/24 09:00 08/09/24 09:00 08/09/24 09:00 08/09/24 07:50
Intake and Output
08/08/24 08/09/24 08/10/24
06:59 06:59 06:59
Intake Total 2520 / 2520 880 / 880
Output Total 2099 / 2099 664 / 664 400 / 400
Balance 420 / 420 216 / 216 -400 / -400
SaO2 97
Nasal Cannula flow liters per 2
minute
Physical Exam
General: Respiratory Distress (negative), Comfortable and Other (NAD)
HEENT: Normocephalic, Anicteric and Moist Mucous Membranes
Cardiovascular: S1-S2 and Peripheral Edema (negative)
Respiratory: Clear, Wheeze (negative), Crackles (negative), Rhonchi (negative), Non-Labored Respirations and Stridor (negative)
GI: Soft, Non Distended and Non Tender
Neurology: AO x 3 and Tremors (negative)
Skin: Warm, Dry, Cyanosis (negative) and Jaundice (negative)
Labs/Micro/Reports
Lab Data
08/09/24 04:37
08/09/24 04:37
--- NOTE | 2024-08-09 09:10 | W.PN.PLAS ---
Today's Communication
-
Discharge to home
Progress Note
Subjective Data
Doing well, denies shortness of breath, ready for discharge home
Subjective: Tolerating Regular Diet, Ambulatory, Chaudhary Removed and Patient Voided
Objective Data
Vital Signs
Temp Pulse Resp BP Pulse Ox
98.5 F 69 16 113/74 97
08/09/24 07:09 08/09/24 07:00 08/09/24 07:00 08/09/24 07:00 08/09/24 07:50
Intake and Output
08/08/24 08/09/24 08/10/24
06:59 06:59 06:59
Intake Total 2520 / 2520 880 / 880
Output Total 2100 / 2100 664 / 664 400 / 400
Balance 420 / 420 216 / 216 -400 / -400
Intake:
Oral fluids 2020 / 2020 880 / 880
IV fluids (Total) 500 / 500
Lr 1,000 ml @ 125 mls/hr IV . 500 / 500
Q8H CELESTINE Rx#:[id number]
Output:
Drain Output (Total) 335 / 335 214 / 214
Left Abdomen D 145 / 145 97 / 97
Left Breast C 35 / 35 36 / 36
Right Abdomen B 95 / 95 53 / 53
Right Breast A 60 / 60 28 / 28
Urine, Chaudhary 115 / 115
Urine, Voided 1650 / 1650 450 / 450 400 / 400
Other:
Number of approximated MODERATE 1 1
amounts of urine
Physical exam:
No acute distress
No increased work of breathing
Bilateral breast flaps well-perfused in appearance
Intact Doppler signals bilaterally
No evidence of venous congestion
Appropriate drain output, serosanguineous
No undrained fluid collections
Routine incisional healing
Lab Results
08/09/24 04:37
08/09/24 04:37
Assessment / Plan
Status post bilateral NAT flap surgery
SCDs/prophylactic Lovenox
Regular diet
Out of bed to ambulate
P.o. pain control
Every hour flap monitoring for 48 hours
PT OT
VN
--- NOTE | 2024-08-09 09:10 | W.DCSUMMARY ---
Discharge Summary
Discharge Data
Date of Admission: 08/06/24
Date of Discharge: 08/10/24
-
Pending Results: No
Hospital Course
Patient was admitted following bilateral DIP flap breast reconstruction. She was monitored in the ICU with every hour flap checks. She followed a routine postoperative course. She was able to ambulate, tolerated regular diet and pain
well-controlled on oral meds. She was maintained on prophylactic Lovenox dosing. On postoperative day 3 she was discharged to home with visiting nurse.
Discharge Plan
-
Patient Disposition: Home with Home Care
Discharge Diagnosis/Procedures: s/p NAT Flap breast reconstruction
Condition: Good
Diet: Regular
Activity: No strenuous activity
Additional Activity: no heavy lifting >10 lbs
Driving Restrictions: Not until seen by your Dr
Bathing Restrictions: OK to Shower
Other Services: VN
Wound Care: abdominal binder and supportive compression bra as needed, may remove abdominal dressing if wet or seal is broken
Referrals:
UNKNOWN - PT NOT,INTERVIEWE [Family Provider] -
Prescriptions:
New
tramadol 50 mg Tablet
50 - 100 mg PO Q6HPRN PRN (Reason: severe pain) 14 Days Qty: 24 0RF
docusate sodium 100 mg Capsule
100 mg PO TID 14 Days Qty: 42 0RF
gabapentin 100 mg Capsule
100 mg PO Q8 90 Days Qty: 270 0RF
diazepam 5 mg Tablet
5 mg PO TIDPRN PRN (Reason: Muscle Spasms) 14 Days Qty: 42 0RF
enoxaparin 40 mg/0.4 mL Syringe
40 mg SC QPM 28 Days Qty: 11.2 0RF
Continued
multivitamin Tablet
1 tab PO DAILY
Zepbound 12.5 mg/0.5 mL Pen Injector
12.5 mg SC QWEEK
ibuprofen 600 MG tablet
600 mg PO Q6H PRN (Reason: pain)
acetaminophen [Tylenol Extra Strength] 500 mg Tablet
1,000 mg PO Q6 30 Days Qty: 240 0RF
tamoxifen 20 mg Tablet
20 mg PO DAILY
Discharge Orders:
Discharge Patient (As Directed); Ordered 08/09/24
Ordered By: Elijah Martinez
Discharge Date and Time
Discharge Date/Time: 08/09/24 11:40
Print Language: DANISH
[2024-08-09] MEDS: MIRALAX 17 GRAMS PO (09:58)
--- NOTE | 2024-08-09 10:09 | PTCARENOTE ---
Dr. Martinez at bedside at 0900, paddle check completed and unchanged. MD provided pt discharge planning and instructions- RN at bedside with further education. pt verbalized understanding. pt ambulating in hallway. no further complaints at this time.
pt given one dose of miralax per md order.
--- NOTE | 2024-08-09 11:15 | CM ---
CM following re: discharge planning.
Reviewed pt's chart, met with pt.
Pt lives with and a son in a 2SH, 2 steps to enter, has 2 supportive children. Pt described herself as independent in all areas [employer]ANGER, drives, works.
Discharge order noted.
Pt is aware, expressed her agreement with discharge. Pt stated she met with [facility] liaison and she was confirmed that [facility] RN will visit the pt tomorrow. Pt stated her sister in law will transport home.
Please fax discharge instructions to [facility] at [phone].
D/C plan: home with [facility] RN visit tomorrow for drain care and family support. Sister in law to transport
--- NOTE | 2024-08-09 11:40 | PTCARENOTE ---
discussed with Dr. Martinez, pt ordered to hold tamoxifen, pt verbalized understanding. pt verbalized and demonstrated understanding to discharge instructions. ivs removed, pressure dressing applied. pt wheelchaired down by pct, sister in law at
bedside to take patient belongings.
== END 2024-08-09 11:40 | disposition home health service (06) | DRG 580 ==
LOC: ICU 06:27
PROVIDERS: ADMITTING PHYSICIAN Surgery Plastic and Reconstructive Surgery; CONSULT PHYSICIAN Internal Medicine
PROC: 0WUF0JZ Supplement Abdominal Wall with Synthetic Substitute, Open Approach (ICD-10-PCS; 2024-08-06)
PROC: 07B90ZX Excision of Left Internal Mammary Lymphatic, Open Approach, Diagnostic (ICD-10-PCS; 2024-08-06)
PROC: 0HRV077 Replacement of Bilateral Breast using Deep Inferior Epigastric Artery Perforator Flap, Open Approach (ICD-10-PCS; 2024-08-06)
PROC: 07B80ZX Excision of Right Internal Mammary Lymphatic, Open Approach, Diagnostic (ICD-10-PCS; 2024-08-06)
DX: Z42.1 Encounter for breast reconstruction following mastectomy (principal); E87.1 Hypo-osmolality and hyponatremia; Z85.3 Personal history of malignant neoplasm of breast; Z90.13 Acquired absence of bilateral breasts and nipples; E83.51 Hypocalcemia; D64.9 Anemia, unspecified; E66.9 Obesity, unspecified; Z68.36 Body mass index [BMI] 36.0-36.9, adult; E78.5 Hyperlipidemia, unspecified
CPT/HCPCS: 88304; 88305; 80048; 85014; 85018; 85025; 88341; 88342; 97163; A4648; C1729; C1776; C1781; P9045

== ENCOUNTER 2024-08-25 14:03 | Outpatient (RCR) | payer BC, SELFPAY | END 2024-08-25 23:59 | disposition home or self-care (01) | LOC: RPT 14:03 | PROVIDERS: ATTENDING PHYSICIAN Surgery Plastic and Reconstructive Surgery; FAMILY PHYSICIAN Family Medicine | DX: C50.111 Malignant neoplasm of central portion of right female breast (principal); L90.5 Scar conditions and fibrosis of skin; I97.2 Postmastectomy lymphedema syndrome | CPT/HCPCS: 97162; 97530 ==

== ENCOUNTER 2024-10-14 06:26 | Outpatient (RCR) | payer BC, SELFPAY | END 2024-10-14 23:59 | disposition home or self-care (01) | LOC: RPT 06:26 | PROVIDERS: ATTENDING PHYSICIAN Surgery Plastic and Reconstructive Surgery; FAMILY PHYSICIAN Family Medicine | DX: C50.111 Malignant neoplasm of central portion of right female breast (principal); L90.5 Scar conditions and fibrosis of skin; I97.2 Postmastectomy lymphedema syndrome; Z73.6 Limitation of activities due to disability | CPT/HCPCS: 97110; 97112; 97140; 97162 ==

== ENCOUNTER 2024-11-13 10:01 | Outpatient (RCR) | payer BC, SELFPAY | END 2024-11-13 11:51 | disposition home or self-care (01) | LOC: RPT 10:01 | PROVIDERS: ATTENDING PHYSICIAN Surgery Plastic and Reconstructive Surgery; FAMILY PHYSICIAN Family Medicine | DX: I97.2 Postmastectomy lymphedema syndrome (principal); C50.111 Malignant neoplasm of central portion of right female breast; L90.5 Scar conditions and fibrosis of skin; Z73.6 Limitation of activities due to disability | CPT/HCPCS: 97110; 97112; 97140; 97530 ==

== ENCOUNTER → 2024-12-15 10:14 | Outpatient (REF) | payer BC, SELFPAY | LOC: HWRAD 10:14 | PROVIDERS: ATTENDING PHYSICIAN Obstetrics & Gynecology; FAMILY PHYSICIAN Internal Medicine; OTHER PHYSICIAN Internal Medicine Hematology & Oncology | DX: C50.111 Malignant neoplasm of central portion of right female breast (principal); Z79.810 Long term (current) use of selective estrogen receptor modulators (SERMs) | CPT/HCPCS: 76830; 76856 ==

== ENCOUNTER 2024-12-17 06:15 | Day surgery (SDC) | payer BC, SELFPAY ==
[2024-12-02 09:37] LABS: Hematocrit 36.0 % (37.0-47.0); Hemoglobin 12.1 g/dL (12.0-16.0); Mean Corp Hgb Conc. 33.6 g/dL (33.0-37.0); Mean Corpuscular Volume 88.9 fL (81.0-99.0); Nucleated Red Blood Cells % 0 %; Platelet Count 273 10^3/uL (130-400); Red Cell Dist. Width 13.0 % (11.5-14.5)
[2024-12-02 09:47] LABS: ALT (SGPT) 17 U/L (0-35); AST (SGOT) 22 U/L (14-36); Albumin 4.0 g/dl (3.5-5.0); Alkaline Phosphatase 44 U/L (38-126); Blood Urea Nitrogen 7 mg/dl (7-17); Calcium 8.9 mg/dl (8.4-10.2); Carbon Dioxide 24 mmol/L (22-30); Chloride 108 mmol/L (98-107); Glucose 92 mg/dl (70-99); Potassium 3.9 mmol/L (3.5-5.1); Sodium 139 mmol/L (135-145); Total Protein 7.0 g/dl (6.3-8.2); eGFR > 60.00
[2024-12-17] VITALS (9 sets, daily range): BP systolic 5–132; BP diastolic 65–76; BMI 33.9
[2024-12-17] MEDS: DILAUDID 0.5 MG IV ×2 (11:59→12:10)
--- NOTE | 2024-12-17 12:46 | W.IMMPOSTOP ---
Surgical Immed Post Op Note
-
Primary Surgeon: VALERIE Martinez MD
Assisting Surgeon:
Pre-op Diagnosis: h/o breast CA, s/p bilateral mastectomy and NAT flap recon
Post-op Diagnosis: Same
Procedure Performed: Revisions to reconstructed breasts, JESSY trunk, dog ear excisions, fat grafting
Anesthesia Type: GA
Specimen / Cultures:
Estimated Blood Loss: 30 cc
Complications: None
Operative Findings: As expected
--- NOTE | 2024-12-17 12:46 | OR.RPT ---
Operative Report
Operative Report
Date of surgery: 12/17/2024
Surgeon: Giulia Martinez MD
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
Postoperative diagnosis: Same
Procedure:
1. Bilateral revisions to reconstructed breasts
2. Bilateral mastopexy
3. Suction assisted lipectomy trunk, bilateral
4. Fat grafting to reconstructed breasts, 150cc
5. Excision of bilateral abdominal dogears, 3 x 6 cm and 2.5 x 5.5 cm
6. Adjacent tissue transfer trunk, bilateral for repair, 31.75 cm�
Anesthesia: General
EBL: 30 cc
Complications: None
Indication for procedure: Patient is a 49-year-old female who underwent bilateral mastectomy and staged tissue dress draper to NAT flap reconstruction. She followed a routine postoperative course. She was left with contour abnormalities, and
asymmetries and residual deformities that she desired correction for. A plan was made for revisions of the bilateral reconstructed breasts via flap excision, bilateral mastopexies for correction of redundant skin, suction assisted lipectomy of the
lateral breast and chest wall for contour correction, bilateral dogear excision with adjacent tissue transfer and fat grafting to the bilateral breast. Risks were reviewed at length and consents were confirmed.
Procedure in detail: Patient was identified preoperatively and the surgical site was confirmed to be the bilateral breast lateral chest wall bilateral flanks and trunk. Patient was marked in the upright position. Consents were confirmed and all
questions were answered. Patient was taken back to the operating room placed upon the table. Anesthesia was induced and the patient was prepped and draped in the usual sterile fashion using ChloraPrep solution. Timeout for patient safety was
performed was confirmed that preoperative antibiotics administered and bilateral SCDs were in place. Procedure began first with the revisions to the bilateral reconstructed breast. Extensive debulking of the bilateral DIP flaps need to be
performed with reinset of the flaps higher on the chest wall. This was performed with a series of 2-0 Vicryl sutures to suspend the flap. Bilateral mastopexy's were then performed to create symmetry of the nipple areolar complex which would be
reconstructed. This was done with vertical mastopexy markings, more extensive on the right than the left. The proposed pexy was then tailor tacked and the redundant skin was excised full-thickness. To achieve additional symmetry, suction assisted
lipectomy was performed to the reconstructed breast and lateral chest wall. Tumescent solution was distributed over the lateral chest wall as well as bilateral lateral flanks and abdomen. Tumescent solution consisted of a dilute lidocaine with
epinephrine solution. The breasts were being closed with a series of 3-0 Monocryl sutures, INSORB stapler, 4-0 Monocryl while tumescent set in. After waiting appropriate mount of time, suction assisted lipectomy of the lateral chest wall was
performed. Additional fat graft harvest was performed over the bilateral lateral flanks and anterior abdomen. The fat was then processed using the pure graft system. A total of 150 cc was available for reinjection into the bilateral breast to
smooth out contour irregularities increased symmetry. Attention was then drawn to the bilateral abdominal dogears that resulted from her D IEP flap. These were excised with the aforementioned measurements. In order to eliminate recurrent dogear
rotation advancement flaps were performed. Primary defect was created by the excision and the secondary defect was created by the additional backcut to allow rotation. This lengthened the incisions. These were sutured and placed with a series of
3-0 and 4-0 Monocryl sutures. Patient tolerated the procedure well and was performed out complication, all counts were correct at the end of the case. She was extubated taken the PACU for further care.
== END 2024-12-17 13:44 | disposition home or self-care (01) ==
LOC: SDS 06:15
PROVIDERS: ATTENDING PHYSICIAN Surgery Plastic and Reconstructive Surgery; FAMILY PHYSICIAN Internal Medicine
DX: Z85.3 Personal history of malignant neoplasm of breast (principal); Z90.13 Acquired absence of bilateral breasts and nipples; L98.7 Excessive and redundant skin and subcutaneous tissue
CPT/HCPCS: 19316; 19380; 15771; 15772 ×2; 14001; 15002; 36415; 80053; 85025; 93005; C1729

== ENCOUNTER → 2025-01-14 08:36 | Outpatient (REF) | payer BC, SELFPAY | LOC: WDC 08:36 | PROVIDERS: ATTENDING PHYSICIAN Surgery Plastic and Reconstructive Surgery; FAMILY PHYSICIAN Internal Medicine | DX: N64.1 Fat necrosis of breast (principal) | CPT/HCPCS: 76642 ==

== ENCOUNTER 2025-01-27 06:18 | Day surgery (SDC) | payer BC, SELFPAY | END 2025-01-27 12:58 | disposition home or self-care (01) | LOC: GI 06:18 | PROVIDERS: ATTENDING PHYSICIAN Internal Medicine Gastroenterology; FAMILY PHYSICIAN Internal Medicine | DX: Z12.11 Encounter for screening for malignant neoplasm of colon (principal); K57.30 Diverticulosis of large intestine without perforation or abscess without bleeding | CPT/HCPCS: G0121 ==

== ENCOUNTER → 2025-01-29 09:30 | Outpatient (REF) | payer BC, SELFPAY | LOC: CLAB 09:30 | PROVIDERS: ATTENDING PHYSICIAN Surgery Plastic and Reconstructive Surgery | DX: Z42.1 Encounter for breast reconstruction following mastectomy (principal); Z85.3 Personal history of malignant neoplasm of breast | CPT/HCPCS: 88304 ==

== ENCOUNTER → 2025-04-16 09:26 | Outpatient (REF) | payer BC, SELFPAY | LOC: WDC 09:26 | PROVIDERS: ATTENDING PHYSICIAN Surgery Plastic and Reconstructive Surgery; FAMILY PHYSICIAN Internal Medicine | DX: N64.1 Fat necrosis of breast (principal); Z85.3 Personal history of malignant neoplasm of breast | CPT/HCPCS: 76642 ==